=== PATIENT | male | born 1965 | race Caucasian/White ===

== ENCOUNTER 2021-02-16 12:02 | Emergency (ER) | payer BC ==
[2021-02-16 12:38] LABS: HEMOGLOBIN 15.5 gm/dl (14.0-17.5); RED BLOOD COUNT 4.95 M/UL (4.20-5.50)
[2021-02-16 12:53] LABS: BUN/CREATININE RATIO 18 (0-10)
[2021-02-16] MEDS ORDERED: IBUPROFEN600 MG PO (14:54)
== END 2021-02-16 15:04 | disposition home or self-care (01) ==
LOC: ER1 12:02
PROVIDERS: Physician Assistant Medical
DX: R10.9 Unspecified abdominal pain (principal); R11.0 Nausea; I10 Essential (primary) hypertension
CPT/HCPCS: 80053; 81001; 85025; 99284; Q9967